=== PATIENT | male | born 1965 | race Caucasian/White ===

== ENCOUNTER → 2017-10-18 | Outpatient (CLI) | payer BC ==
--- NOTE | 2017-10-18 22:18 | CT ---
EXAMINATION TYPE: CT abdomen pelvis w con DATE OF EXAM: 10/18/2017 COMPARISON: NONE HISTORY: 52-year-old male Right side mid abdominal pain x2 months. Spigelian hernia. TECHNIQUE: Contiguous axial scanning of the abdomen and pelvis following administration of 100 ml Iso maureen 300 IV contrast. Delayed images through the kidneys and coronal/sagittal reconstructions perform ed. CT DLP: 665.5 mGycm Automated exposure control for dose reduction was used. FINDINGS: Heart is normal size without pericardial effusion. Lung bases clear without pleural effusion. Liver mildly enlarged measuring 19.0 cm. Diffuse low attenuation of the hepatic parenchyma. No focal lesion is seen. Gallbladder, adrenal glands, kidneys, spleen, and pancreas show no gross abnormality. Portal venous system is patent. No biliary ductal dilatation. No dilated small bowel, free fluid, or free air. No mesenteric or retroperitoneal lymphadenopathy. Normal appendix. No significant stool wording. Oral contrast has progressed to the proximal sigmoid. There is moderate circumferential wall thickening of the bladder. Prostate gland measures 4.4 cm wide . No abnormal fluid collection in the pelvis or pelvic lymphadenopathy. With attention to the abdominal wall, and no discrete hernia or abdominal wall defect is identified. No masses seen in the subcutaneous adipose layer Bones: Mild facet arthropathy lower lumbar spine. Degenerative disc disease from L2 through S1 levels . Grade 1 retrolisthesis at L3-L4 and L4-L5. IMPRESSION: 1. NO VENTRAL ABDOMINAL WALL OR SPIGELIAN HERNIA IDENTIFIED. IF PERSISTENT CONCERN, THE STUDY CAN BE REVIEWED WITH DIRECTED ATTENTION. 2. 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 3. MODERATE CIRCUMFERENTIAL BLADDER WALL THICKENING COULD REPRESENT CHRONIC BLADDER WALL HYPERTROPHY. CORRELATE TO EXCLUDE CYSTITIS.
== END | disposition home or self-care (01) ==
LOC: RADCTMAIN 16:22
PROVIDERS: ATTEND Surgery
DX: N32.89 Other specified disorders of bladder (principal); K76.0 Fatty (change of) liver, not elsewhere classified; R16.0 Hepatomegaly, not elsewhere classified
CPT/HCPCS: 74177; Q9967

== ENCOUNTER → 2018-02-26 | Outpatient (CLI) | payer BC ==
--- NOTE | 2018-02-26 15:13 | NM ---
Nuclear medicine hepatobiliary scan. HISTORY: Pain. DOSAGE: The patient received 8 ounces of ensure plus and 5.2 mCi of Technetium 99m Choletec. FINDINGS: There is normal hepatic extraction. Now localized area of diminished uptake involving the left lobe of the liver likely artifactual. Correlate with ultrasound as clinically warranted. No abno rmality noted in this region on the CT scan of 10/18/2017 The gallbladder is seen by 10 minutes. There is biliary to bowel clearance by 45 minutes. Ejection fraction is 51%. IMPRESSION: 1. No evidence of cholecystitis. 2. Ejection fraction is 51%.
== END | disposition home or self-care (01) ==
LOC: RADNMMAIN 12:48
PROVIDERS: ATTEND Surgery
DX: K82.8 Other specified diseases of gallbladder (principal)
CPT/HCPCS: 78226; A9537

== ENCOUNTER → 2018-02-27 | Outpatient (CLI) | payer BC ==
--- NOTE | 2018-02-28 09:01 | CT ---
EXAMINATION TYPE: CT abdomen pelvis w con DATE OF EXAM: 02/27/2018 COMPARISON: 10/18/2017 HISTORY: RUQ pain CT DLP: 589.4 mGycm Automated exposure control for dose reduction was used. TECHNIQUE: Helical acquisition of images was performed from the lung bases through the pelvis. CONTRAST: Performed with Oral Contrast and with IV Contrast, patient injected with 100 mL of Isovue 300. FINDINGS: LUNG BASES: No significant abnormality is appreciated. LIVER/GB: Hepatic parenchyma is diffusely hypoattenuated in comparison to that of the spleen, most co mmonly seen in hepatic steatosis. This finding limits evaluation for hepatic masses. No gross evidenc e of hepatic mass is seen. No intrahepatic biliary ductal dilatation. No cholelithiasis. Gallbladder is contracted PANCREAS: No significant abnormality is seen. SPLEEN: No significant abnormality is seen. ADRENALS: No significant abnormality is seen. KIDNEYS: Kidneys enhance and excrete symmetrically without hydronephrosis. ADENOPATHY: No greater than 1 cm short axis lymph node is seen within the abdomen or pelvis. REPRODUCTIVE ORGANS: Prostate gland is heterogenous containing central zone calcifications. URINARY BLADDER: Urinary bladder is better distended on the current examination than on the prior. OSSEOUS STRUCTURES: Mild multilevel degenerative changes of the spine are present BOWEL: Small hiatal hernia is noted. No dilated large or small bowel is seen. Moderate amount retain ed colonic stool is noted. Appendix is air-filled and within normal limits IMPRESSION: 1. REDEMONSTRATION OF MILD GRADE HEPATIC STEATOSIS. 2. CONTRACTED GALLBLADDER WITH NO INTRAHEPATIC BILIARY DUCTAL DILATATION OR EXTRAHEPATIC BILIARY DUCT AL DILATATION IDENTIFIED. 3. SMALL HIATAL HERNIA.
== END | disposition home or self-care (01) ==
LOC: RADCTMAIN 14:43
PROVIDERS: ATTEND Surgery
DX: K82.0 Obstruction of gallbladder (principal); K44.9 Diaphragmatic hernia without obstruction or gangrene; K76.0 Fatty (change of) liver, not elsewhere classified
CPT/HCPCS: 74177; Q9967

== ENCOUNTER 2018-03-27 11:12 | Day surgery (SDC) | payer BC ==
[2018-03-02 12:48] VITALS: BMI 26.6
[~2018-03-27 11:12] MED LIST: LACTATED RINGERS 1,000 ML IV SCH
[2018-03-27 11:29] VITALS: TEMP 97.1
[2018-03-27] MEDS ORDERED: PROPOFOL 10 MG/ML 20 ML VIAL IV ONE (11:54)
--- NOTE | 2018-03-27 11:56 | P.GSHP ---
History of Present Illness H&P Date: 03/27/18 Chief Complaint: GI bleed This is a 52-year-old male referred from Dr. Bc Thomas. Patient presents today for colonoscopy. He's had issues with rectal bleeding. Past Medical History Additional Past Medical History / Comment(s): Hemorrhoids History of Any Multi-Drug Resistant Organisms: None Reported Past Surgical History: Orthopedic Surgery, Tonsillectomy Additional Past Surgical History / Comment(s): 2 back surgeries, colonoscopy, ear tubes. Past Anesthesia/Blood Transfusion Reactions: No Reported Reaction Smoking Status: Former smoker - Past Family History Mother Family Medical History: Cancer Father Family Medical History: Cancer Medications and Allergies Home Medications Medication Instructions Recorded Confirmed Type Calcium Carbonate [Calcium] 600 mg PO DAILY 03/02/18 03/21/18 History Magnesium 200 mg PO DAILY 03/02/18 03/21/18 History Multivitamin [Men's Multi-Vitamin] 1 each PO DAILY 03/02/18 03/21/18 History Balko-3 Fatty Acids/Fish Oil [Fish 1 each PO DAILY 03/02/18 03/21/18 History Oil 1,000 mg Softgel] Testosterone (Unknown Dose) 1 tab PO DAILY 03/02/18 03/27/18 History Allergies Allergy/AdvReac Type Severity Reaction Status Date / Time No Known Allergies Allergy Verified 03/02/18 11:37 Surgical - Exam Vital Signs Temp Pulse Resp BP Pulse Ox 97.1 F L 63 16 130/83 97 03/27/18 11:28 03/27/18 11:28 03/27/18 11:28 03/27/18 11:28 03/27/18 11:28 - General well developed, no distress - Eyes PERRL - ENT normal pinna - Neck no masses - Respiratory normal expansion - Cardiovascular Rhythm: regular - Abdomen Abdomen: soft, non tender Assessment and Plan Assessment: GI bleed. We'll perform colonoscopy.
--- NOTE | 2018-03-27 12:05 | P.OP ---
Date of Procedure: 03/27/18 Preoperative Diagnosis: GI bleed Postoperative Diagnosis: Mild internal hemorrhoids Normal colonoscopy Procedure(s) Performed: Colonoscopy Anesthesia: MAC Surgeon: Mando Alva Pathology: none sent Condition: stable Disposition: PACU Description of Procedure: The patient's placed on the endoscopy table in the lateral position. He received IV sedation. Digital rectal exam was performed which revealed a few internal hemorrhoids. Colonoscope was then placed patient anus and passed throughout the entire colon. The ileocecal valve was visualized. The cecum, ascending and transverse colon appeared normal. The descending and sigmoid colon appeared normal. The scope was then brought back the rectum and this was normal. Scope was withdrawn through the anus and internal hemorrhoids are noted. Scope was withdrawn for patient. There is no evidence of any GI bleed. It was presumed that the patient had bleeding from his internal hemorrhoids in the past.
[2018-03-27 12:26] VITALS: BP 109/68; PULSE 53; RESP 18
== END 2018-03-27 13:05 | disposition home or self-care (01) ==
LOC: ORWHC2ENDO 11:12
PROVIDERS: ATTEND Surgery
DX: K64.8 Other hemorrhoids (principal); Z87.891 Personal history of nicotine dependence; Z79.890 Hormone replacement therapy
CPT/HCPCS: 45378; J2704

== ENCOUNTER → 2019-09-04 | Outpatient (CLI) | payer BC ==
[2019-09-04 14:27] LABS: Appearance,Urine Clear (Clear); Bilirubin,Urine Negative (Negative); Blood,Urine Negative (Negative); Color,Urine Light Yellow; Glucose,Urine (UA) Negative (Negative); Ketones,Urine Negative (Negative); Leukocyte Esterase,Urine Negative (Negative); Nitrite,Urine Negative (Negative); Protein,Urine Negative (Negative); Specific Gravity,Urine 1.008 (1.001-1.035); Urobilinogen,Urine <2.0 mg/dL (<2.0)
[2019-09-04 14:28] LABS: Basophils % (A) 1 %; Eosinophils # (A) 0.2 k/uL (0-0.7); Eosinophils % (A) 3 %; HCT 47.3 % (39.0-53.0); HGB 15.8 gm/dL (13.0-17.5); Lymphocytes # (A) 2.1 k/uL (1.0-4.8); Lymphocytes % (A) 37 %; MCH 31.6 pg (25.0-35.0); MCHC 33.4 g/dL (31.0-37.0); MCV 94.4 fL (80.0-100.0); Mean Platelet Volume 7.3; Monocytes # (A) 0.3 k/uL (0-1.0); Monocytes % (A) 6 %; Neutrophils % (A) 51 %; Platelet Count 248 k/uL (150-450); RBC 5.01 m/uL (4.30-5.90); RDW 12.7 % (11.5-15.5); WBC 5.8 k/uL (3.8-10.6)
[2019-09-04 15:12] LABS: Partial Thromboplastin Time 27.1 sec (22.0-30.0); Prothrombin Time 10.8 sec (9.0-12.0)
[2019-09-04 19:11] LABS: African American GFR (CKD) 86.5 (60.0-200.0); Albumin 4.8 g/dL (3.80-4.90); Albumin/Globulin Ratio 2.09 (1.60-3.17); Anion Gap 7.1 mmol/L (4.00-12.00); BUN/Creat Ratio 17.27 Ratio (12.00-20.00); Calcium 9.6 mg/dL (8.7-10.3); Carbon Dioxide 27.9 mmol/L (21.6-31.8); Globulin 2.3 g/dL (1.6-3.3); Non-African American GFR(CKD) 74.6 (60.0-200.0); Potassium 4.5 mmol/L (3.5-5.5); Total Bilirubin 0.5 mg/dL (0.3-1.2); Total Protein 7.1 g/dL (6.2-8.2)
[2019-09-04 19:50] LABS: Hemoglobin A1C 5.4 % (4.0-6.0)
== END | disposition home or self-care (01) ==
LOC: LABWHC1 13:37
DX: M47.896 Other spondylosis, lumbar region (principal)
CPT/HCPCS: 36415; 80053; 81003; 83036; 84134; 85025; 85610; 85730; 93005